=== PATIENT | male | born 1975 | race Caucasian/White ===

== ENCOUNTER 2024-05-21 19:44 | Emergency (ER) | payer OTHER ==
[~2024-05-21] VITALS: Ht 182.9 cm; Wt 72.6 kg
[~2024-05-21 19:44] MED LIST: Cipro500 MG PO
[2024-05-21 20:11] VITALS: BP 104/75
== END 2024-05-21 22:10 | disposition home or self-care (01) ==
LOC: ER 19:44
DX: S51.812A Laceration without foreign body of left forearm, initial encounter (principal); F17.210 Nicotine dependence, cigarettes, uncomplicated; W26.8XXA Contact with other sharp object(s), not elsewhere classified, initial encounter
CPT/HCPCS: 12002; 99282-25